=== PATIENT | female | born 2000 | race African-American/Black ===

== ENCOUNTER 2024-08-27 08:56 | Emergency (ER) | payer SELFPAY ==
[2024-08-27] MEDS: Acetaminophen 325 MG Tab PO ONE (09:43)
[2024-08-27 09:52] LABS: CORONAVIRUS COVID-19 NAA POSITIVE (NEGATIVE); INFLUENZA A NAA NEGATIVE (NEGATIVE); INFLUENZA B NAA NEGATIVE (NEGATIVE); RESPIRATORY SYNCYTIAL VIR NAA NEGATIVE (NEGATIVE)
== END 2024-08-27 10:22 | disposition home or self-care (01) ==
LOC: MW.ED 08:56
DX: U07.1 COVID-19 (principal); Z75.8 Other problems related to medical facilities and other health care
CPT/HCPCS: 0241U; 87651; 99284; A9270

== ENCOUNTER 2024-09-15 07:46 | Emergency (ER) | payer SELFPAY | END 2024-09-15 08:07 | disposition home or self-care (01) | LOC: MW.ED 07:46 | DX: K13.0 Diseases of lips (principal); Z75.8 Other problems related to medical facilities and other health care | CPT/HCPCS: 99283 ==